=== PATIENT | female | born 1950 | race Caucasian/White ===

== ENCOUNTER 2018-11-04 08:48 | Emergency (ER) | payer MEDICARE, BC ==
[2018-11-04 09:09] VITALS: BP 160/83
--- OUTSIDE RECORDS SUMMARY | 2018-11-04 09:11 | XMS REPORT | Continuity of Care Document ---
:1950 External Reference #:[id number] Author Name SIRI Amaya Address [address] [place] [address] [place] [address] Care Team Providers Name Role Phone Randall Chung M.D. Care Team Information Training Analyst Unavailable Jose David Bennett M.D. Primary Care Physician Unavailable Payers Type Date Identification Numbers Payment Provider Subscriber Policy Number: [id number] Medicare Rolando Bridges PayID: [id number] [address] [place] [address] Effective: 2011 Policy Number: [id number] [facility] Jonel Bridges PayID: [id number] [address] [place] [address] Expires: 2018 Policy Number: [id number] Medicare Rolando Bridges PayID: [id number] [address] [place] [address] Effective: 2006 Policy Number: [id number] [facility] Expires: 2011 Group Name: [id number] [address] [address] PayID: [id number] [place] [id number] Advance Directives Description No Information Available Problems Date Description Provider Status Onset: 04/17/2016 Bladder muscle dysfunction - Javon Allen MD Active overactive Onset: 03/27/2013 Increased frequency of urination Javon Allen MD Active Onset: 03/27/2013 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 Family History Date Family Member(s) Problem(s) Comments Father Lung Cancer Social History Type Date Description Comments Sex Unknown Marital Status Patient is Occupation Medically Retired Tobacco Use Start: Unknown End: Unknown Quit - Age 35 Smoking Status Reviewed: 10/10/18 Quit - Age 35 ETOH Use Social Alcohol Use Allergies, Adverse Reactions, Alerts Date Description Reaction Status Severity Comments 08/30/2009 Latex Active Medications Medication Date Status Form Strength Qnty SIG Indications Ordering Provider Balbirbetriq Active Tablets ER 50mg 30tabs Take One Ayanna K 017 24HR Tablet By JESSY Kumar Mouth Every Day Nexium Active Capsules DR 40mg 1 po qd Unknown 000 Centrum Silver Active Unknown 000 Micardis Active 40mg qd Unknown 000 Vitamin D Active 4000Iu qd Unknown 000 Vitamin B12 Active qd Unknown 000 Lipitor Active Tablets 10mg 1 by Unknown 000 mouth every night at bedtime Aspirin Ec Active Tablets DR 81mg 1 by Unknown 000 mouth every day Fenofibrate Active Tablets 145mg Unknown 000 Gabapentin Active Capsules 300mg Unknown 000 Onglyza Active Tablets 5mg White, 000 Olvin, RShaneN. F.N.P. Alendronate Active Tablets 35mg Unknown Sodium 000 Janumet Active Tablets 50-500mg Unknown 000 Toviaz Hx Tablets ER 8mg 30tabs Take One Javon HightowerShane 013 - 24HR Tablet By Tiffany Mouth MD 017 Every Day Lisinopril Hx Tablets 10mg daily Unknown 000 - 014 Tramadol HCL Hx Tablets ER 200mg Unknown ER 000 - 24HR 016 Enablex 0 Hx Unknown 000 - 014 Neurontin 0 Hx Unknown 000 - 014 Onglyza 0 Hx Tablets 2.5mg qd Unknown 000 - 015 Lexapro 0 Hx Tablets 10mg qd Unknown 000 - 017 Fish Oil 0 Hx Capsules 1000mg 1 by Unknown 000 - mouth twice a 016 day Immunizations Description No Information Available Vital Signs Date Vital Result Comment 10/10/2018 3:56pm Height 66 inches 5'6" Weight 170.00 lb Weight 77.112 kg BMI (Body Mass Index) 27.4 kg/m2 BP Systolic 144 mmHg BP Diastolic 87 mmHg Heart Rate 82 /min Post Void Residual ml 0 Bladder Scanner, Indication: frequency 10/01/2017 4:04pm Height 66 inches 5'6" Weight 180.00 lb Weight 81.648 kg BMI (Body Mass Index) 29.0 kg/m2 BP Systolic 159 mmHg BP Diastolic 87 mmHg Heart Rate 77 /min 06/21/2017 8:37am BP Systolic 132 mmHg BP Diastolic 85 mmHg Heart Rate 69 /min Post Void Residual ml 20 Bladder Scan, Indication:nocturia 05/11/2017 8:33am BP Systolic 127 mmHg BP Diastolic 86 mmHg Heart Rate 79 /min Post Void Residual ml 0 Bladder Scan, Indication:r35.1 04/19/2017 10:54am Height 66 inches 5'6" Weight 175.00 lb Weight 79.380 kg BMI (Body Mass Index) 28.2 kg/m2 BP Systolic 133 mmHg BP Diastolic 85 mmHg Heart Rate 75 /min 04/17/2016 10:25am Height 66 inches 5'6" Weight 170.00 lb Weight 77.112 kg BMI (Body Mass Index) 27.4 kg/m2 BP Systolic 111 mmHg BP Diastolic 73 mmHg Heart Rate 77 /min 04/08/2015 8:51am Height 65 inches 5'5" Weight 170.00 lb Weight 77.112 kg BMI (Body Mass Index) 28.3 kg/m2 BP Systolic 121 mmHg BP Diastolic 75 mmHg Heart Rate 84 /min 04/02/2014 8:50am Height 66 inches 5'6" Weight 175.00 lb Weight 79.380 kg BMI (Body Mass Index) 28.2 kg/m2 BP Systolic 134 mmHg BP Diastolic 85 mmHg Heart Rate 79 /min 03/27/2013 10:17am Height 65 inches 5'5" Weight 180.00 lb Weight 81.648 kg BMI (Body Mass Index) 30.0 kg/m2 BP Systolic 136 mmHg BP Diastolic 87 mmHg Heart Rate 72 /min 03/22/2012 9:09am Height 65 inches 5'5" Weight 165.00 lb Weight 74.844 kg BMI (Body Mass Index) 27.5 kg/m2 BP Systolic 124 mmHg BP Diastolic 70 mmHg Heart Rate 81 /min Results Test Date Facility Test Result H/L Range Note 230 Ua Routine 10/10/2018 [facility] Ua Glucose Negative REF TO DR ADDRESS ON ORDER FOR (315)- - Ua Protein Negative Ua Nitrite Negative Ua Leuko Negative Ua Blood Trace-intact * Ua Color Yellow Ua Ketones Negative Ua Clarity Clear Ua Specific Parkman 1.010 1.003-1.030 Ua PH 7.0 5.0-7.5 Ua Bilirubin Negative Ua Urobilinogen 0.2 E.U./dL 0.0-1.0 230 Ua Routine 06/21/2017 [facility] Ua Glucose Negative REF TO DR ADDRESS ON ORDER FOR (315)- - Ua Protein Negative Ua Nitrite Negative Ua Leuko Negative Ua Blood Negative Ua Color Not Entered Ua Ketones Negative Ua Clarity Not Entered Ua Specifici [place]man 1.015 1.003-1.030 Ua PH 6.5 5.0-7.5 Ua Bilirubin Negative Ua Urobilinogen 0.2 E.U./dL 0.0-1.0 230 Ua Routine 05/11/2017 [facility] Ua Glucose Negative REF TO DR ADDRESS ON ORDER FOR (315)- - Ua Protein Negative Ua Nitrite Negative Ua Leuko Negative Ua Blood Negative Ua Color Not Entered Ua Ketones Negative Ua Clarity Not Entered Ua Specifici Parkman 1.015 1.003-1.030 Ua PH 6.5 5.0-7.5 Ua Bilirubin Negative Ua Urobilinogen 0.2 E.U./dL 0.0-1.0 230 Ua Routine 04/19/2017 [facility] Ua Glucose Negative REF TO DR ADDRESS ON ORDER FOR (315)- - Ua Protein Negative Ua Nitrite Negative Ua Leuko Negative Ua Blood Negative Ua Color Not Entered Ua Ketones Negative Ua Clarity Not Entered Ua Specifici Parkman 1.010 1.003-1.030 Ua PH 7.0 5.0-7.5 Ua Bilirubin Negative Ua Urobilinogen 0.2 E.U./dL 0.0-1.0 230 Ua Routine 04/17/2016 [facility] Ua Glucose Negative REF TO DR ADDRESS ON ORDER FOR (315)- - Ua Protein Negative Ua Nitrite Negative Ua Leuko Negative Ua Blood Negative Ua Color Not Entered Ua Ketones Negative Ua Clarity Not Entered Ua Specifici Parkman <=1.005 1.003-1.030 Ua PH 6.0 5.0-7.5 Ua Bilirubin Negative Ua Urobilinogen 0.2 E.U./dL 0.0-1.0 #Ua Routine 04/08/2015 [facility] Ua Glucose Negative REF TO DR ADDRESS ON ORDER FOR (315)- - Ua Protein Negative Ua Nitrite Negative Ua Leuko Negative Ua Blood Trace-intact * Ua Color Not Entered Ua Ketones Negative Ua Clarity Not Entered Ua Specific [place]man <=1.005 1.003-1.030 Ua PH 6.5 5.0-7.5 Ua Bilirubin Negative Ua Urobilinogen 0.2 E.U./dL 0.0-1.0 #Ua Routine 04/02/2014 [facility] Ua Glucose Negative REF TO DR ADDRESS ON ORDER FOR (315)- - Ua Protein Negative Ua Nitrite Negative Ua Leuko Negative Ua Blood Negative Ua Color Not Entered Ua Ketones Negative Ua Clarity Not Entered Ua Specific [place] 1.015 1.003-1.030 Ua PH 7.0 5.0-7.5 Ua Bilirubin Negative Ua Urobilinogen 0.2 E.U./dL 0.0-1.0 #Ua Routine 03/27/2013 [facility] Ua Glucose Negative REF TO DR ADDRESS ON ORDER FOR (315)- - Ua Protein Negative Ua Nitrite Negative Ua Leuko Negative Ua Blood Negative Ua Color Not Entered Ua Ketones Negative Ua Clarity Not Entered Ua Specific [place]man 1.010 Ua PH 7.5 Ua Bilirubin Negative Ua Urobilinogen 0.2 E.U./dL #Ua Routine 03/22/2012 [facility] Ua Glucose Negative REF TO DR ADDRESS ON ORDER FOR (315)- - Ua Protein Negative Ua Nitrite Negative Ua Leuko Negative Ua Blood Negative Ua Color Not Entered Ua Ketones Negative Ua Clarity Not Entered Ua Specific Parkman <=1.005 Ua PH 5.5 Ua Bilirubin Negative Ua Urobilinogen 0.2 E.U./dL #Ua Routine 03/23/[address] [facility] Glucose Negative REF TO DR ADDRESS ON ORDER FOR (315)- - Ua Prot/Creat Normal Ua Protein Negative Ua Nitrite Negative Ua Leuko Negative Ua Blood Negative Ua Color Not Entered Ua Ketones Negative Ua Clarity Not Entered Ua Specific Parkman 1.010 Ua PH 6.0 Ua Creatinine 50 mg/dL #Ua Routine 03/17/2010 [facility] Ua Specific [place] 1.[address] ADDRESS ON ORDER FOR (315)- - Ua PH 7.5 Ua Protein Negative Ua Nitrite Negative Ua Leuko Negative Ua Blood Negative Ua Glucose Negative Ua Color Not Entered Ua Ketones Negative Ua Bilirubin Negative Ua Urobilinogen 0.2 E.U./dL Procedures Date Code Description Status 10/10/2018 44421 Bladder Scan, Post Voiding Residual Urine Completed 10/01/2017 02157735 Colonoscopy Completed 06/21/2017 94817 Bladder Scan, Post Voiding Residual Urine Completed 05/11/2017 45264 Bladder Scan, Post Voiding Residual Urine Completed 04/19/2017 69539 Ultrasound Retro Renal Real Time With Image Limited Completed Tech 04/19/2017 90174 Ultrasound Retro Renal Real Time With Image Limited Completed Tech 03/27/[address] Abdomen/Pelvis Wo Contrast Completed 03/23/[address] Abdomen/Pelvis Wo Contrast Completed 03/17/[address] Abdomen W/O Contrast Completed 03/17/[address] Pelvis W/O Contrast Completed Encounters Type Date Location Provider Dx Diagnosis Office Visit 10/10/2018 [facility]/ Anant Eric N32.81 Overactive bladder 4:00p 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 bladder Urology R35.1 Nocturia Office Visit 05/11/2017 8:30a Macho Kumar N32.[address]/ [facility]rology R35.1 Nocturia Office Visit 04/19/2017 11:00a [place]o [place] D30.[address]/ A.MDavina Allen MD of left kidney Urology N32.81 Overactive bladder Office Visit 04/17/2016 10:15a [place]o [place] D30.[address]/ A.MDavina Allen MD of left kidney Urology N32.81 Overactive bladder Office Visit 04/08/2015 9:00a [place]o [place] [address]/ A.M.Laron Allen MD Disorders Unspec Urology 223.0 Benign Neoplasm Kidney Except Pelvis 788.41 Urinary Frequency Office Visit 04/02/2014 9:00a [place]o [place] 223.0 Benign Neoplasm Juan/ Noy.Davina Allen MD Kidney Except Urology Pelvis 788.41 Urinary Frequency Office Visit 03/27/2013 10:20a [place] 223.0 Benign Neoplasm Juan/ Noy.M.Laron Allen MD Kidney Except Urology Pelvis 223.0 Benign Neoplasm Kidney Except Pelvis 584.9 Acute Kidney Failure, Unspecified 788.41 Urinary Frequency Office Visit 03/22/2012 9:15a Mach[facility] Dustin Lovett [address]/ A.M.PShane Shepard PFrancesco Kidney Except Urology Pelvis Office Visit 03/23/2011 10:00a [place]o [place] 223.0 Benign Neoplasm Juan/ Noy.M.Laron Allen MD Kidney Except Urology Pelvis 223.0 Benign Neoplasm Kidney Except Pelvis Office Visit 03/17/2010 10:30a [place]o [place] 223.0 Benign Neoplasm Juan/ Noy.M.Laron Allen MD Kidney Except Urology Pelvis 593.9-1 Kidney/Ureter Disorders Unspec Acute Renal Disease Office Visit 09/13/2009 4:15p Macoh [place] 593.9-1 Kidney/Ureter Juan/ MD Tiffany Disorders Unspec [facility] Acute Renal Disease Urology Office Visit 08/30/2009 10:00a [place]o [place] 593.[address] Kid[address] Ureter Ino Allen MD Disorders Unspec [facility] Plan of Treatment Future Appointment(s):10/15/2019 10:45 am - SIRI Amaya at [facility]/ [facility] Ubxpbar11/11/2019 10:00 am - THIAGO MEJIAS at [facility]/ [facility] Zqobpap10/06/2018 - KRISTINA Amaya32.81 Overactive bladderComments:Patient presents for follow-up of overactive bladder. She tried anticholinergics previously but experienced dry mouth. She was switched to Myrbetriq 50 mg daily and had good results. She tolerates it well. She has noticed less frequency and urgency. PVR by bladder scan=0 mL. Her blood pressure is stable and she is happy with the results. She will continue the Myrbetriq.R35.0 Frequency of micturitionComments:Symptoms improved using Myrbetriq.D30.02 Benign neoplasm of left kidneyNew Xrays:US Retroperitoneal, Limited, Ordered: 10/10/18Comments:She had a renal ultrasound 05/15/18 which revealed a large calcification in the left kidney. She had a previous CT of the abdomen and pelvis without contrast 04/08/15 with a probable complex cyst versus AML. She had a follow-up renal ultrasound 09/22. She denies any flank pain or gross hematuria. I reviewed the preliminary renal ultrasound which was free of any hydronephrosis, renal calculi or cysts.She does appear to have a complex mass in the left kidney similar to that previously noted. Likely angiomyolipoma. At this time we will plan on following up in 1 year with renal ultrasound. If the official radiology report identifies any change, I will contact her.AllFollow up:One year with renal ultrasound and bladder scan.
--- OUTSIDE RECORDS SUMMARY | 2018-11-04 09:11 | XMS REPORT | Continuity of Care Document ---
:1950 External Reference #:[id number] Author Name Community, Computer Care Team Providers Name Role Phone Jose David Bennett MD Care Team Information [employer] Unavailable Payers Type Date Identification Numbers Payment Provider Subscriber Policy Number: [id number] Medicare Frantz Bridges PayID: [id number] [address] [place] [address] Policy Number: [id number] [facility] Jonel Bridges PayID: [id number] [address] [address] [place] [address] Effective: 2016 Policy Number: [id number] Medicare Frantz Bridges Expires: 2018 PayID: [id number] [address] [place] [address] Advance Directives Description No Information Available Problems Date Description Provider Status Onset: 07/11/2018 Essential hypertension Jose David Bennett MD Active Onset: 07/11/2018 Type II diabetes mellitus Jose David Bennett MD Active uncontrolled Onset: 07/11/2018 Mixed hyperlipidemia Jose David Bennett MD Active Onset: 07/11/2018 Urinary incontinence Jos eDavid Bennett MD Active Onset: 07/11/2018 Liver function tests abnormal Jose David Bennett MD Active Onset: 07/11/2018 Renal mass Jose David Bennett MD Active Family History Date Family Member(s) Problem(s) Comments : Father due to Lung Cancer Smoker, age (03/29/2018) 70 Mother Hypertension Mother Diabetes Type 2 Social History Type Date Description Comments Sex Unknown Education Highest level completed, Associates Degree Marital Status Has been 1 time Lives With Spouse Occupation Retired disabled 1993 Tobacco Use Start: Unknown Former Cigarette quit in 1985, smoked End: Unknown Smoker 20+ years, 1ppd ETOH Use Currently consumes occasional beer alcohol Recreational Drug Use Denies Drug Use Tobacco Use Start: Unknown Patient is a former End: Unknown smoker Smoking Status Reviewed: 07/11/18 Patient is a former smoker Exercise Type/Frequency 07/26/2018 Walks daily Allergies, Adverse Reactions, Alerts Date Description Reaction Status Severity Comments 03/29/2018 Latex Active swelling, blistering 03/29/2018 Boniva Active Medications Medication Date Status Form Strength Qnty SIG Indications Ordering Provider Janumet XR Active Tablets ER 50-1000mg 60tabs 2 tablets E11.65 Jonel Ruby 24HR po qd MD Trey Z79.84 Accu-Chek Kathi 08/27/2018 Active Strips 200units test 2x/day E11.65 Jose David Larry Plus MD Donald Z79.84 Nexium 03/29/[address] 40mg 90caps 1 by Jose David Bennett MD every day Telmisartan 03/29/2018 Active Tablets 40mg 1 by Jose David Bennett MD daily Lexapro 03/29/2018 Active Tablets 10mg 30tabs 1 by Jose David Bennett MD every day Myrbetriq 03/29/2018 Active Tablets ER 50mg 30tabs 1 by Jose David Larry 24HR mouth MD Donald every day Gabapentin 03/29/2018 Active Capsules 300mg 60caps 1 by Jose David Bennett MD twice times a day Vitamin D-3 03/29/2018 Active Tablets 5000Uni 1 by Jose David Bennett MD every day Magnesium 03/29/2018 Active Tablets 250mg 1 po qd Jose David Larry Gluconate MD Donald Lancets Ultra Active Misc Thin 200units 2/day E11 Unknown Thin 30G 30G .65 Z79.84 Metformin HCL ER Hx Tablets ER 500mg 30tabs 1 tablet po E11.65 Jose David Ruby - 24HR qpm after Donald, dinner MD Ruby Z79.84 Onglyza 03/29/2018 - Hx Tablets 5mg 90tabs 1 by mouth Jose David Larry 08/27/2018 every day MD Donald Immunizations CPT Code Status Date Vaccine Lot # [id number] Given 08/29/2018 Flu,High Dose For (Ages 65 and older) [id number] Given 07/11/2018 Pneumococcal Vaccine - Prevnar 13 [id number] Given 11/05/2015 Zostavax [id number] Given 11/05/2008 Pneumococcal 23 Vaccine Vital Signs Date Vital Result Comment 09/25/2018 3:23pm Weight 170.00 lb Weight 77.112 kg Height 65.25 inches 5'5.25" BMI (Body Mass Index) 28.1 kg/m2 08/27/2018 10:37am Weight 172.00 lb Weight 78.019 kg Height 65.25 inches 5'5.25" BMI (Body Mass Index) 28.4 kg/m2 07/26/2018 11:04am Weight 174.00 lb Weight 78.926 kg Height 65.25 inches 5'5.25" BMI (Body Mass Index) 28.7 kg/m2 07/11/2018 8:28am BP Systolic 120 mmHg BP Diastolic 80 mmHg Heart Rate 74 /min Body Temperature 97.8 F Respiratory Rate 16 /min Weight 175.00 lb Weight 79.380 kg Height 65.25 inches 5'5.25" BMI (Body Mass Index) 28.9 kg/m2 03/29/2018 9:37am BP Systolic 128 mmHg BP Diastolic 78 mmHg Heart Rate 64 /min Body Temperature 98.4 F Respiratory Rate 12 /min Weight 176.00 lb Weight 79.834 kg Height 65.25 inches 5'5.25" BMI (Body Mass Index) 29.1 kg/m2 Results Test Date Facility Test Result H/L Range Note Allergy Food Panel 07/26/2018 [facility] Ige, Total @ 20 kU/L (<160 ) Peanut Result <0.35 kU/L (0.00-0.35) Peanut Class 0 Soybean Result <0.35 kU/L (0.00-0.35) Soybean Class 0 Cow's Milk Result <0.35 kU/L (0.00-0.35) Cow's Milk Class 0 [place] Result <0.35 kU/L (0.00-0.35) [place] Class 0 Pecan Result <0.35 kU/L (0.00-0.35) Pecan Class 0 Crab Result <0.35 kU/L (0.00-0.35) Crab Class 0 Shrimp Result <0.35 kU/L (0.00-0.35) Shrimp Class 0 Egg Yolk/White Result <0.35 kU/L (0.00-0.35) Egg Yolk/White Class 0 [place] Result <0.35 kU/L (0.00-0.35) [place] Class 0 Codfish Result <0.35 kU/L (0.00-0.35) Codfish Class 0 Wheat Result <0.35 kU/L (0.00-0.35) Wheat Class 0 [place] Result <0.35 kU/L (0.00-0.35) [place] Class 0 1 Allergy, Black 07/26/2018 [facility] Black Pepper <0.10 kU/L 2 [place] Allergy, Paprika 07/26/2018 [facility] Martinez Pepper <0.10 kU/L 3 Pepper Ige Laboratory test 07/26/2018 [facility] Hersey <0.10 kU/L 4 finding Pepper,Allergy Allergy Interp 07/26/2018 [facility] Allergy Interp See Note 5 [address] [place], [place] [id number] [phone] Comprehensive 07/11/2018 [facility] Glucose 180.00 mg/dL High 70.00 - 6 Metabolic Panel 110.00 Urea Nitrogen 7 mg/dL Low 8-21 CreaC 0.7 mg/dL 0.6-1.1 GFR 85.95 mL/min 7 Na-C 133 mmol/L Low 136-145 K-C 4.2 mmol/L 3.5-5.1 Cl-C 100 mmol/L 98-107 Total Protein 7.1 g/dL 6.4-8.3 Alb P 4.00 g/dL 3.30-5.00 Alanine Aminotransferase 60 U/L High 0-55 Aspartate Aminotransferase 73 U/L High 5-34 Alkaline Phosphatase 49 U/L 40-150 Carbon Dioxide 21.00 mmol/L Low 22.00-31.00 BUN/CR 9.72 Low 10.00-20.00 A/G 2.29 1.46-2.46 Osmo 278.50 275.00-295.00 CaC 9.30 mg/dL 8.90-10.40 Total Bilirubin 1.1 mg/dL 0.2-1.2 Glob 2 3.10 2.30-4.20 Glycohemoglobin 07/11/2018 [facility] %A1cwb 7.45 High 4.00-6.00 8 eAG (Ave Glu) 167.04 mg/dL Lipid Panel(New) 07/11/2018 [facility] Cholesterol 222 mg/dL High 112-200 9 Triglyceride 179 mg/dL 1-200 10 HDL 42 mg/dL 30-85 11 Chol/HDL 5.29 4.00-6.70 NHDL 180.00 mg/dL High 0.00-100.00 12 LDL-C 144.20 mg/dL High 20.00-130.00 13 Ast & Alt 05/17/2018 [facility] Aspartate Aminotransferase 77 U/L High 5-34 Alanine Aminotransferase 90 U/L High 0-55 Comprehensive 03/29/2018 [facility] Glucose 171.00 mg/dL High 70.00- 110.00 Metabolic Panel Urea Nitrogen 12 mg/dL 8-21 CreaC 0.8 mg/dL 0.6-1.1 GFR 77.29 mL/min 14 Na-C 136 mmol/L 136-145 K-C 4.3 mmol/L 3.5-5.1 Cl-C 99 mmol/L 98-107 Total Protein 7.2 g/dL 6.4-8.3 Alb P 4.00 g/dL 3.30-5.00 Alanine Aminotransferase 61 U/L High 0-55 Aspartate Aminotransferase 70 U/L High 5-34 Alkaline Phosphatase 70 U/L 40-150 Carbon Dioxide 27.00 mmol/L 22.00-31.00 BUN/CR 15.19 10.00-20.00 A/G 2.25 1.46-2.46 Osmo 285.79 275.00-295.00 CaC 9.60 mg/dL 8.90-10.40 Total Bilirubin 0.8 mg/dL 0.2-1.2 Glob 2 3.20 2.30-4.20 CBC/Automated Differential 03/29/2018 [facility] WBC 7.21 k/uL 4.60 -10.20 Ashley 3.93 2.00-7.50 %N 54.5 % 37.0-80.0 Lym 2.40 K/UL 1.20-4.80 %L 33.3 % 10.0-50.0 [place] 0.631 0.000-0.900 %M 8.75 % 0.00-12.00 Eos 0.137 0.000-0.700 %E 1.90 % 0.00-7.00 Baso 0.110 0.000-0.200 %B 1.53 % 0.00-4.00 RBC 4.78 m/uL 4.04-6.13 Hemoglobin 14.5 g/dL 12.2-18.1 Hematocrit 42.7 % 37.7-47.0 MCV 89.3 fl 80.0-97.0 MCH 30.3 pg 27.0-31.2 MCHC 33.9 g/dL 31.8-35.4 RDW 11.2 % Low 11.6-14.8 PLT 188 K/uL 142-424 MPV 6.1 fL 0.0-99.9 Glycohemoglobin 03/29/2018 [facility] %A1cwb 6.91 High 4.00-6.00 15 eAG (Ave Glu) 151.60 mg/dL Urinalysis/Microscopic 03/29/2018 [facility] Color Yellow Appear Clear Clear Leuk Negative Negative Nitrite Negative Negative Urobil 0.2 E.U./dL 0.2-1.0 Protein Negative Negative pH 7.0 5.0-8.5 Blood Negative Negative S.G. 1.010 1.005-1.025 Ketone Negative Negative Bili Negative Negative Glu Negative Negative Comment [employer] <SEE NOTE> 16 Laboratory test finding 03/29/2018 [facility] Microalbumin 10 mg/L 0-19 1 REFERENCE RANGES FOR SPECIFIC IgE TESTS: IgE (kU/L) INTERPRETATION < 0.35 CLASS 0 ABSENT/VERY LOW 0.35 to 0.69 CLASS 1 LOW 0.70 to 3.49 CLASS 2 MODERATE 3.50 to 17.49 CLASS 3 HIGH 17.50 to 52.49 CLASS 4 VERY HIGH 52.50 to 99.99 CLASS 5 VERY HIGH > 99.99 CLASS 6 VERY HIGH Unless otherwise specified, testing performed by [facility] [place] [facility] [address] [address] 2 Reference range: <=0.34 Performed by [facility] [employer], [address] [place] [address] [email or web address], Hill Gomez MD, Lab. Director Unless otherwise specified, testing performed by [facility] [address] [place] [address] 3 Reference range: <=0.34 Performed by [employer], [address] [facility] [place] [address] www.[email or web address], Hill Gomez MD, Lab. Director Unless otherwise specified, testing performed by [facility] [employer] [place] [address] 4 Reference range: <=0.34 INTERPRETIVE INFORMATION: Allergen, [place] Pepper Test developed and characteristics determined by [facility] [facility] [employer] See Compliance Statement A: [facility]/ Performed by [employer], [address] [place] [address],[place] [address] [email or web address], Hill Gomez MD, Lab. Director Unless otherwise specified, testing performed by [facility] [address] [place] [address] 5 REFERENCE INTERVAL: Allergen, Interpretation Less than 0.10 kU/L......Class 0.....No significant level detected 0.10-0.34 kU/L...........Class 0/1...Clinical relevance undetermined 0.35-0.70 kU/L...........Class 1.....Low 0.71-3.50 kU/L...........Class 2.....Moderate 3.51-17.50 kU/L..........Class 3.....High 17.51-50.00 kU/L.........Class 4.....Very High 50.01-100.00 kU/L........Class 5.....Very High Greater than 100.00kU/L..Class 6.....Very High Allergen results of 0.10-0.34 kU/L are intended for specialist use as the clinical relevance is undetermined. Even though increasing ranges are reflective of increasing concentrations of allergen-specific IgE, these concentrations may not correlate with the degree of clinical response or skin testing results when challenged with a specific allergen. The correlation of allergy laboratory results with clinical history and in vivo reactivity to specific allergens is essential. A negative test may not rule out clinical allergy or even anaphylaxis. Performed by [facility] [employer], [address] [place] [address] www.[email or web address], Hill Gomez MD, Lab. Director 6 FASTING Fastin hours FASTING Fastin hours FASTING Fastin hours 7 NORMAL FUNCTION OR MILD RENAL DISEASE:>60 ml/min ADVANCED RENAL DISEASE:15-59 ml/min RENAL FAILURE:<15 ml/min 8 GOAL <7 9 GOAL LESS THAN 200 10 GOAL LESS THAN 200 11 GOAL GREATER THAN 45 12 GOAL LESS THAN 100 13 GOAL LESS THAN 100 14 NORMAL FUNCTION OR MILD RENAL DISEASE:>60 ml/min ADVANCED RENAL DISEASE:15-59 ml/min RENAL FAILURE:<15 ml/min 15 GOAL <7 16 Essentially Negative Urine Procedures Date Code Description Status 06/17/2018 29132921 Colonoscopy Completed 04/30/2018 799367553 Bone Mineral Density Test Completed 04/05/2018 [id number] Mammogram Completed Encounters Type Date Location Provider Dx Diagnosis Office Visit 07/11/2018 Main Office Jose David Larry Z00.00 Encntr for general 8:15a MD Donald adult medical exam w/o abnormal findings E11.65 Type 2 diabetes mellitus with hyperglycemia I10 Essential (primary) hypertension E78.2 Mixed hyperlipidemia R94.5 Abnormal results of liver function studies N39.498 Other specified urinary incontinence Z23 Encounter for immunization Office Visit 03/29/2018 9:15a Main Office Jose David Larry E11.65 Type 2 diabetes MD Donald mellitus with hyperglycemia E78.2 Mixed hyperlipidemia R94.5 Abnormal results of liver function studies N39.498 Other specified urinary incontinence Plan of Treatment Future Appointment(s):11/13/2018 10:00 am - Jose David Bennett MD at Main [facility]0709/25/2018 - Silva Lynn RD,CDN,CdeE11.65 Type 2 diabetes mellitus with hyperglycemiaComments:1. Continue all meds as currently prescribed, no changes made today2. Continue to check blood sugar regularly as previously advised3. Continue excellent diet and alcohol discretion as previously advised: - You lost another 2 lbs of weight the past 4 weeks, and your blood sugar is much improved4. Continue to stay physically active everyday and exercise regularlyFollow up with MD as scheduled, I shall check on your progress thenZ79.84 bed bug exterminator (current) use of oral hypoglycemic drugsComments:Continue to take Janumet XR as currently prescribed
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
== END 2018-11-04 09:35 | disposition left against medical advice (07) ==
LOC: UCCORT 08:48
DX: S06.9X1A Unspecified intracranial injury with loss of consciousness of 30 minutes or less, initial encounter (principal); W01.198A Fall on same level from slipping, tripping and stumbling with subsequent striking against other object, initial encounter; Y93.9 Activity, unspecified; Y92.008 Other place in unspecified non-institutional (private) residence as the place of occurrence of the external cause; S00.83XA Contusion of other part of head, initial encounter; M54.2 Cervicalgia; E11.9 Type 2 diabetes mellitus without complications; I10 Essential (primary) hypertension; Z79.84 Long term (current) use of oral hypoglycemic drugs; Z87.891 Personal history of nicotine dependence
CPT/HCPCS: 99212; G0463